=== PATIENT | male | born 1960 | race Caucasian/White ===

== ENCOUNTER 2020-05-18 01:10 | Emergency (ER) | payer BC, SELFPAY ==
--- NOTE | ~2020-05-18 | XR_ITS ---
EXAMINATION: CT abdomen pelvis wo con, XR abdomen/kub 1V DATE: 05/18/2020 01:58 INDICATION: Right flank pain TECHNIQUE: 1. Computed tomography (CT) of the abdomen and pelvis was performed without intravenous contrast. Aut omated exposure control and iterative reconstruction technique were employed. The dose-length product was 1383.85 mGy-cm. 2. AP view of the abdomen and pelvis was obtained on 2 radiographs. COMPARISON: None FINDINGS: CT: 7-8 mm right lower lobe pulmonary nodule. Heart size is normal. No pericardial or pleural effusion. G allstones at the neck of the normal-appearing gallbladder. Liver, spleen, pancreas and bilateral adre nal glands are normal. There is a 3 mm calcification along the course of the incompletely visualized distal right ureter near the region of the ureterovesicular junction however assessment at this locat ion is limited by dense metallic streak artifact from bilateral total hip arthroplasties which obscur es portions of the pelvis including the posterior bladder. Mild right hydroureteronephrosis with jimenez nephric and periureteral stranding. There are 3 additional nonobstructing stones at the lower pole of the left kidney measuring up to 3 mm. No left-sided ureteral stones or hydroureteronephrosis. Scatte red colonic diverticula without adjacent inflammatory change to suggest diverticulitis. No bowel obst ruction. The appendix is not visualized. No pericecal inflammatory change to suggest acute appendicit is. No free intraperitoneal gas or fluid. No pathologically enlarged abdominal or pelvic lymphadenopa thy. Moderate thoracolumbar spondylosis including 5 mm anterolisthesis L4 on L5 and 3 mm retrolisthes is L5 on S1. KUB: The 2 mm and 3 mm stones at the lower pole of the left kidney are visible on the plain radiographs. C audal to a linear atherosclerotic calcification in the right hemipelvis is a subtle density which may represent the suspected 2 mm distal right ureteral stone near the ureterovesicular junction. Normal bowel gas pattern. IMPRESSION: 1. Nephrolithiasis with likely obstructing 3 mm stone in the distal right ureter with mild right hydr oureteronephrosis and prominent perinephric and periureteral stranding. Evaluation in the region of t he distal ureter is however limited by streak artifact. The likely stone has been indicated on the pl ain radiographs. Correlate with urinalysis to exclude associated ascending urinary tract infection. 2. Indeterminate 7-8 mm right lower lobe nodule. Recommend 3 month follow-up low-dose noncontrast andres st CT. Reviewed, dictated and finalized at location A. IMPRESSION: 1. Nephrolithiasis with likely obstructing 3 mm stone in the distal right urete r with mild right hydroureteronephrosis and prominent perinephric and periurete ral stranding. Evaluation in the region of the distal ureter is however limited by streak artifact. The likely stone has been indicated on the plain radiograp hs. Correlate with urinalysis to exclude associated ascending urinary tract inf ection. 2. Indeterminate 7-8 mm right lower lobe nodule. Recommend 3 month follow-up lo w-dose noncontrast chest CT.
[2020-05-18 01:18] VITALS: BP 173/87; PULSE 77; RESP 18; TEMP 35.9; O2SAT 98
--- NOTE | 2020-05-18 01:31 | ED.BACK ---
HPI - Back Pain/Injury General Chief Complaint: Back Pain/Injury Stated Complaint: right flank pain Time Seen by Provider: 05/18/20 01:20 Source: RN notes reviewed History of Present Illness HPI Narrative: Patient presents emergency department from home for right flank pain. Patient states that approximately 30 tonight he sat on the couch watching TV when he developed right flank pain. He states the pain progressively getting worse and radiates around into the abdomen. Denies any fevers or chills vomiting or diarrhea. Notes intermittent nausea states he did take Advil at home 2 hours ago with minimal relief no history of kidney stones Related Data Home Medications Medication Instructions Recorded Confirmed atorvastatin 40 mg PO HS 05/18/20 glipizide 5 mg PO DAILY 05/18/20 losartan 100 mg PO HS 05/18/20 meloxicam 7.5 mg PO DAILY 05/18/20 metformin 500 mg PO BID 05/18/20 Allergies Allergy/AdvReac Type Severity Reaction Status Date / Time No Known Allergies Allergy Verified 05/18/20 01:12 Review of Systems Review of Systems: Narrative: Gen.: Denies fevers or chills ENT: Denies congestion Respiratory: Denies shortness of breath or cough CV: Denies chest pain or palpitations GI: Denies abdominal pain nausea, emesis or diarrhea reports right flank pain denies burning, urgency, frequency or hematuria Musculoskeletal: Denies back pain or muscle pain Neuro: Denies numbness, tingling, weakness or focal weakness Skin: Denies rash Except as documented, all other systems reviewed and negative PMFSH Past Medical History Medical History (Updated 05/18/20 @ 03:31 by Kunal Blank DO) Diabetes mellitus Social History Social History (Updated 05/18/20 @ 01:32 by Kunal Blank DO) Smoking status: Never smoker Exam Narrative: Exam Narrative: APPEARANCE: No acute distress, nontoxic, resting in bed EYES: EOMI HEENT: Normocephalic, atraumatic, OMM RESPIRATORY: No respiratory distress Clear to auscultation bilaterally with no rhonchi wheezing or rales. CARDIOVASCULAR: Regular rate and rhythm without murmurs rubs or gallops. ABDOMINAL: Soft, nontender, nondistended, no rebound or guarding right flank tenderness MUSCULOSKELETAl: Moves all extremities. No clubbing, cyanosis or edema. NEURO: Awake and alert. Following commands, speech normal, no focal deficits SKIN:: Warm, dry. No rashes lesions or abrasions PSYCHIATRIC: Normal affect/mood, Course Course Emergency Course: Patient states pain is improved at this time Discussed with patient results of workup and diagnosis. Discussed need for follow-up with primary care, proper use of medication, and reasons to return to the emergency department. Patient understands and agrees to current treatment plan. Discussed with patient CT findings of lung nodule and soft tissue density in the cecum need for follow-up with his primary care physician as an outpatient for further evaluation Vital Signs Vital signs: Vital Signs Temperature 96.6 F L 05/18/20 01:18 Pulse Rate 77 05/18/20 01:18 Respiratory Rate 18 05/18/20 01:18 Blood Pressure 173/87 H 05/18/20 01:18 Pulse Oximetry 98 05/18/20 01:18 Temperature 96.6 F L 05/18/20 01:18 Pulse Rate 77 05/18/20 01:18 Respiratory Rate 18 05/18/20 01:18 Blood Pressure 173/87 H 05/18/20 01:18 Pulse Oximetry 98 05/18/20 01:18 MDM - Back Pain/Injury Lab Data Result diagrams: 05/18/20 01:31 05/18/20 01:31 Labs: Lab Results 05/18/20 05/18/20 05/18/20 Range/Units 01:30 01:31 01:31 WBC 10.0 (4.5-10.0) K/mm3 RBC 4.62 (4.6-6.20) M/mm3 Hgb 14.2 (14.0-18.0) g/dL Hct 40.4 L (42.0-52.0) % MCV 87.4 (80-100) fl MCH 30.7 (26-34) pg MCHC 35.1 (32-36) g/dl RDW 11.8 (11.5-14.5) % Plt Count 195 (150-375) k/mm3 MPV 10.3 (7.4-10.4) fl Immature Gran % (Auto) 0.5 (0-0.5) % Neut % (Auto) 85.1 H (45.5-73.1) % Lymph
[2020-05-18 01:37] LABS: Basophils Percent Auto 0.4 % (0.2-1.2); Eosinophils Percent Auto 0.1 % (0-4.4); Hematocrit 40.4 % (42.0-52.0); Hemoglobin 14.2 g/dL (14.0-18.0); Immature Granulocyte Absolute 0.05 K/mm3 (0.00-0.031); Immature Granulocyte Percent A 0.5 % (0-0.5); Lymphocytes Absolute Auto 0.91 K/mm3 (0.9-3.2); Lymphocytes Percent Auto 9.1 % (18.3-44.2); Mean Corpuscular HGB Conc 35.1 g/dl (32-36); Mean Corpuscular Hemoglobin 30.7 pg (26-34); Mean Corpuscular Volume 87.4 fl (80-100); Mean Platelet Volume 10.3 fl (7.4-10.4); Monocytes Absolute Auto 0.5 K/mm3 (0.1-0.6); Monocytes Percent Auto 4.8 % (2.6-8.5); Neutrophils Absolute Auto 8.5 K/mm3 (1.3-6.7); Neutrophils Percent Auto 85.1 % (45.5-73.1); Platelet Count Result 195 k/mm3 (150-375); Red Blood Count 4.62 M/mm3 (4.6-6.20); Red Cell Distribution Width 11.8 % (11.5-14.5)
[2020-05-18 01:41] LABS: Add Urine Microscopic? YES; Appearance Urine Clear (Clear); Bilirubin Urine Negative (Negative); Blood Urine Negative (Negative); Color Urine Straw (Yellow); Glucose Urine UA 3+ mg/dL (Negative); Ketones Urine Trace mg/dL (Negative); Leukocyte Esterase Ur Negative LEU/UL (Negative); Mucus Urine Rare /lpf; Nitrate Urine Negative (Negative); Protein Urine Negative (Negative); RBC Urine 0-2 /hpf (0-2); Specific Grav Ur 1.022 (1.001-1.035); Urobilinogen Urine Negative mg/dL (<2.0)
[2020-05-18] MEDS: SODIUM CHLORIDE 0.9% IV 1,000 ML 999 ML IV CONT (01:44)
[2020-05-18 01:49] LABS: Alanine Aminotransferase 56 U/L (4-50); Albumin Level 4.2 g/dL (3.5-5.1); Alkaline Phosphatase 77 U/L (38-126); Anion Gap 9 mmol/L (8-16); Aspartate Amino Transferase 35 U/L (17-59); Blood Urea Nitrogen 25 mg/dL (9-20); Calcium 9.5 mg/dL (8.4-10.2); Carbon Dioxide 22 mmol/L (22-30); Chloride 99 mmol/L (98-107); Estimated CRCL calculation 81 ml/min; Estimated Glomerular Filt Rate > 60; Glucose 283 mg/dL (75-110); Potassium 4.5 mmol/L (3.4-5.0); Sodium 130 mmol/L (137-145)
[2020-05-18 01:50] LABS: Lipase 93 U/L (23-300)
[2020-05-18] MEDS: KETOROLAC 30 MG/ML VIAL (*BKC) IV PUSH (02:47)
[2020-05-18] MEDS: TAMSULOSIN HCL 0.4 MG CAPSULE PO (02:47)
[2020-05-18 03:48] VITALS: BP 154/89; PULSE 73; RESP 16; O2SAT 99
== END 2020-05-18 04:00 | disposition home or self-care (01) ==
PROVIDERS: Emergency Provider Emergency Medicine; PCP Internal Medicine
DX: N20.0 Calculus of kidney (principal); E11.9 Type 2 diabetes mellitus without complications
CPT/HCPCS: 36415; 74018; 74176; 80053; 81001; 83690; 85025; 96365; 96375; 99284; A9270; J0131; J1885; J7030

== ENCOUNTER 2025-01-11 14:08 | Emergency (ER) | payer MEDICARE, OTHER, SELFPAY ==
[2025-01-11 14:17] VITALS: BP 143/76; PULSE 74; RESP 16; TEMP 36.3; O2SAT 99
--- OUTSIDE RECORDS SUMMARY | 2025-01-11 14:19 | XMS_ITS | Clinical Summary ---
Author Organization [facility] Address [address] [place] [address] Care Team Providers Care Cyber Security Administrator Name Role Phone Solomon Benson MD Unavailable [phone] Joseph Carrillo MD Primary Care Provider [phone] Matthias AL MD, Joe Unavailable [phone] Source Comments [facility],non-owned Affiliates and Associated Physician Practices is amultiple site organization consisting of ambulatory clinics and hospital sitesin [place], [place], [place] and [place]. This disclosure is being madepursuant to the Care Everywhere program and may not contain all information available regarding this patient. Last updated 18.[employer] [facility] Allergies No known active allergies Medications * Be aware that medications may not be up to date on this document. Alwaysverify current medications with the patient. SIMVASTATIN PO Take by mouth. Active losartan - hydrochlorothiazide (HYZAAR) 50-12.5 MG tablet Take 1 Tab by mouth once daily. Active naproxen (NAPROSYN) 500 MG tablet Take 1 Tab by mouth 2 times daily. With food 60 Tab 3 01/19/20 13 Active traMADol (ULTRAM) 50 MG tablet Take 1 Tab by mouth every 6 hours as needed for Pain. 60 Tab 0 03/08/20 13 Active Acetaminophen (TYLENOL EXTRA STRENGTH PO) Take by mouth. Active traMADol (ULTRAM) 50 MG tablet Take 1 Tab by mouth every 6 hours as needed for Pain. 60 Tab 0 06/09/20 13 Active Active Problems Problem Noted Date Diagnosed Date Right hip pain 02/23/2013 Encounters Date Type Department Care Team Description 12/12/2024 Lab Requisition [facility] - DermPath Lab [address] [place] [address] Alyssa Saenz DO from Last 3 Months Social History Tobacco Use Types Packs/Day Years Used Date Smoking Tobacco: Never Alcohol Use Standard Drinks/Week Comments Not Asked 0 (1 standard drink = 0.6 oz pur e alcohol) Sex and Gender Information Value Date Recorded Sex Assigned at Not on file Legal Sex Male 1:55 PM GYN Gender Identity Not on file Sexual Orientation Not on file Last Filed Vital Signs Vital Sign Reading Time Taken Comments Blood Pressure 137/87 06/08/2013 2:32 PM CDT Pulse 90 06/08/2013 2:32 PM CDT Temperature - - Respiratory Rate 16 06/08/2013 2:32 PM CDT Oxygen Saturation 97% 06/08/2013 2:32 PM CDT Inhaled Oxygen Concentration - - Weight 90.7 kg (200 lb) 06/08/2013 1:47 PM CDT Height 175.3 cm (5' 9 ) 06/08/2013 1:47 PM CDT Body Mass Index 29.53 06/08/2013 1:47 PM CDT Plan of Treatment Health Maintenance Due Date Last Done Comments COLOGUARD (AGES 45-75) - COL ON CA SCREENING 1959 COLON MONITORING 1959 COLONOSCOPY - COLON CA SCREENING 1959 CT COLONOGRAPHY - COLON CA SCREENING 1959 Colorectal Cancer Screening 1959 FIT - COLON CA SCREENING 1959 FLEX SIG - COLON CA SCREENING 1959 MEDICARE AWV 12 MONTHS 1959 HIV SCREENING 12/04/1974 HEPATITIS C SCREENING 11/30/1977 DTAP/TDAP/TD VACCINES (1 - Tdap) 12/04/1978 PNEUMOCOCCAL VACCINE 50+ (1 of 1 - PCV) 12/04/2009 ZOSTER VACCINE (1 of 2) 12/04/2009 COVID-19 VACCINE ( - 2023-2 5 season) 2024 DEPRESSION SCREENING 09/07/2024 INFLUENZA VACCINE (Season Ended) 2025 Respiratory Syncytial Virus (RSV) Vaccine Pt: or over 60 yrs (1 - 1-dose 75+ series) 12/04/2034 HEPATITIS B VACCINE Aged Out No longe r eligible based on patient's age to complete this topic HIB VACCINE Aged Out No longer eligi ble based on patient's age to complete this topic HPV VACCINE Aged Out No longer eligi ble based on patient's age to complete this topic MENINGOCOCCAL (Group B) VACC INE SHARED DECISION-MAKING Aged Out No longer eligibl e based on patient's age to complete this topic MENINGOCOCCAL GROUPS A/C/Y/W VACCINE Aged Out No longer eligible b ased on patient's age to complete this topic Procedures Procedure Name Priority Date/Time Associated Diagnosis Comments DERMATOPATHOLOGY Routine 12/12/2024 10:5 1 AM CDT from Last 3 Months Results * DERMATOPATHOLOGY (12/12/2024 10:51 AM CDT) Case Report Dermatopathology Report Case: [id number] Authorizing Provider: Alyssa Saenz DO Collected: 12/12/2024 10:51 AM Ordering Location: [facility] - Received: 12/13/2024 07:38 AM DermPath Lab Pathologist: Rama Ritchie MD Specimen: Skin, left mid back 5:38 PM CDT DERMATOPATHOLOGY LABORATORY Final Diagnosis Specimen A. SKIN, left mid back: LENTIGINOUS MELANOCYTIC NEVUS, COMPOUND TYPE, IRRITATED (D22.5) 5:38 PM CDT DERMATOPATHOLOGY LABORATORY Clinical History Nevus, R/O Atypia 5:38 PM CDT DERMATOPATHOLOGY LABORATORY Gross Description Specimen A: Received is one formalin filled container labeled with the patient's name and designated left mid back. The specimen consists of a shave biopsy measuring 7x7x1 mm. Jar 0. 5:38 PM CDT DERMATOPATHOLOGY LABORATORY Microscopic Description Specimen A. SKIN, left mid back: This is a compound nevus. There is melanin pigment within the stratum corneum. There is a lentiginous proliferation of melanocytes between nests of cells along the dermal-epidermal junction, highlighted by MART-1/Melan-A immunohistochemical staining. PRAME demonstrates 1+ staining of the melanocytes. There is underlying fibroplasia of the papillary dermis. The intradermal component is bland appearance and matures with depth. Original and deeper sections were reviewed. (Compound Moiz's Nevus) 5 5:38 PM CDT DERMATOPATHOLOGY LABORATORY Disclaimer An external and internal positive and negative controls are appropriate for the histochemical, immunohistochemical and immunofluorescence stain(s) in this case (if any), except where stated explicitly. The performance characteristics of the stain(s) cited in this report were developed and its performance characteristic determined by the Dermatopathology Laboratory at [facility], directed by Dr. Faviola Alberto. These tests need not be, and therefore are not, approved by the [place] Food and Drug Administration. The tests are used for clinical purposes. Billing Codes Specimen Charges Stain Charges 58136 1 22339 26885 1 1 5 5:38 PM CDT DERMATOPATHOLOGY LABORATORY Embedded Images 5 5:38 PM CDT DERMATOPATHOLOGY LABORATORY Pathology/Cytolo gy TISSUE SPECIMEN FROM SKIN / Unknown 12/12/2024 10:51 AM CDT 12/13/2024 7:38 AM CDT us Alyssa Saenz DO LAB - PATHOLOGY/CYTOLOGY ORDERABLES Final Result DERMATOPATHOLOGY LABORATORY [facility] - Department of Dermatology [address], [address] [phone] from Last 3 Months Insurance [facility] [place] [address] Care Teams Cyber Security Administrator Relationship Specialty Start Date End Date Joseph Carrillo MD PCP - General Internal Medicine 03/31/12 Solomon Benson MD Orthopedic Surgery 03/31/12 Joe Rizzo IV, MD Orthopedic Surgery 04/29/12
--- OUTSIDE RECORDS SUMMARY | 2025-01-11 14:19 | XMS_ITS | Encounter Summary ---
Author Organization [facility] Address [address] [place] [address] Care Team Providers Care Stunner And Shackler Name Role Phone Solomon Benson MD Unavailable [phone] Joseph Carrillo MD Primary Care Provider [phone] Matthias AL MD, Joe Unavailable [phone] Encounter Details Date Type Department Care Team (Late st Contact Info) Description 12/12/2024 Lab Requisition [facility] - DermPath Lab [address] [address] [facility] [place] [id number] Alyssa Saenz DO [address] [facility] [address] [place] [address] Social History Tobacco Use Types Packs/Day Years Used Date Smoking Tobacco: Never Alcohol Use Standard Drinks/Week Comments Not Asked 0 (1 standard drink = 0.6 oz pur e alcohol) Sex and Gender Information Value Date Recorded Sex Assigned at Not on file Legal Sex Male 1:55 PM DIRECTOR ONLINE MARKETING Gender Identity Not on file Sexual Orientation Not on file documented as of this encounter Plan of Treatment Not on file documented as of this encounter Procedures Procedure Name Priority Date/Time Associated Diagnosis Comments DERMATOPATHOLOGY Routine 12/12/2024 10:5 1 AM CDT documented in this encounter Results * DERMATOPATHOLOGY (12/12/2024 10:51 AM CDT) Case Report Dermatopathology Report Case: [id number] Authorizing Provider: Alyssa Saenz DO Collected: 12/12/2024 10:51 AM Ordering Location: [facility] - Received: 12/13/2024 07:38 AM DermPath Lab Pathologist: Rama Ritchie MD Specimen: Skin, left mid back 5:38 PM T DERMATOPATHOLOGY LABORATORY Final Diagnosis Specimen A. SKIN, [...] deeper sections were reviewed. (Compound Moiz's Nevus) 5:38 PM T DERMATOPATHOLOGY LABORATORY Disclaimer An external and internal positive and negative controls are appropriate for the histochemical, immunohistochemical and immunofluorescence stain(s) in this case (if any), except where stated explicitly. The performance characteristics of the stain(s) cited in this report were developed and its performance characteristic determined by the Dermatopathology Laboratory at [facility], directed by Dr. Faviola Alberto. These tests need not be, and therefore are not, approved by the [place] Food and Drug Administration. The tests are used for clinical purposes. Billing Codes Specimen Charges Stain Charges 22188 1 47151 22062 1 1 5:38 PM CDT DERMATOPATHOLOGY LABORATORY Embedded Images 5:38 PM CDT DERMATOPATHOLOGY LABORATORY Pathology/Cytolo gy TISSUE SPECIMEN FROM SKIN / Unknown 12/12/2024 10:51 AM CDT 12/13/2024 7:38 AM CDT us Alyssa Sommerton DO LAB - PATHOLOGY/CYTOLOGY ORDERABLES Final Result DERMATOPATHOLOGY LABORATORY [facility] Department of Dermatology [facility] Medicine [address] [place] [address], [address] [phone] documented in this encounter Visit Diagnoses Not on filedocumented in this encounter Care Teams Stunner And Shackler Relationship Specialty Start Date End Date Joseph Carrillo MD PCP - General Internal Medicine 03/31/12 Solomon Benson MD Orthopedic Surgery 03/31/12 Joe Rizzo IV, MD Orthopedic Surgery 04/29/12 documented as of this encounter
--- OUTSIDE RECORDS SUMMARY | 2025-01-11 14:19 | XMS_ITS | Referral Summary ---
Author Organization [facility] Address [address] [place] [address] Care Team Providers Care [employer] Science Teacher Name Role Phone Valentine Hawkins MD Primary Care Provid er Allergies No known active allergies Medications atorvastatin (LIPITOR) 40 mg tablet Take 40 mg by mouth daily Active losartan (COZAAR) 100 mg tablet Take 100 mg by mouth daily with dinner Active meloxicam (MOBIC) 7.5 mg tablet Take 7.5 mg by mouth daily Active metFORMIN (GLUMETZA) 500 mg 24 hr tablet Take 500 mg by mouth 2 (two) times a day with meals Active glipiZIDE XL (GLUCOTROL XL) 5 mg 24 hr tabletIndication s:type 2 diabetes mellitus Take 5 mg by mouth 2 (two) times a day Active empagliflozin (JARDIANCE) 10 mg tabletIndication s:type 2 diabetes mellitus 10 mg daily Active hydroCHLOROthiaz mary (HYDRODIURIL) 12.5 mg tablet Take 12.5 mg by mouth daily 11/07/2021 Active Active Problems Problem Noted Date Diagnosed Date Hyperparathyroidism 04/10/2021 Assessment & Plan (04/10/2021 12:51 PM CDT): Primary hyperparathyroidism based on records reviewed. Will plan on confirming biochemical diagnosis with blood test today. Will obtain urine studies including stone analysis in 24 hour urine calcium from urology clinic. He had parathyroid scan with nonlocalizing imaging. Will obtain the images for review here. Will also obtain neck ultrasound. Bone density evaluation at baseline. Given recurrent kidney stones, patient meet criteria to have surgery. Will refer to surgery once we gather all the information necessary to make the diagnosis and justifies surgical treatment. Kidney stone 04/10/2021 Assessment & Plan (04/10/2021 12:48 PM CDT): Will request urology records including images and 24 hr urine studies Type 2 diabetes mellitus wit hout complication, without long-term current use of insulin 04/10/2021 Assessment & Plan (04/10/2021 12:49 PM CDT): Managed by PCP Plan A1c recheck in [address] Carrillo clinic. May consider increasing metformin to 1 g Social History Tobacco Use Types Packs/Day Years Used Date Smoking Tobacco: Never Smokeless Tobacco: Never AUDIT-C Answer Date Recorded Q1: How often do you have a drink containing alcohol? Never 02/05/2022 Q2: How many drinks containi ng alcohol do you have on a typical day when you are drinking? Patient does not drink Q3: How often do you have si x or more drinks on one occasion? Never 02/05/2022 Sex and Gender Information Value Date Recorded Sex Assigned at Not on file Legal Sex Male 1:23 PM ADVERTISING ANALYST Gender Identity Not on file Sexual Orientation Not on file Last Filed Vital Signs Vital Sign Reading Time Taken Comments Blood Pressure 106/66 02/11/2022 7:28 AM CDT Pulse 62 02/11/2022 7:28 AM CDT Temperature 36.8 C (98.2 F) 02/11/2022 7:28 AM CDT Respiratory Rate 18 02/11/2022 7:28 AM CDT Oxygen Saturation 97% 02/11/2022 7:28 AM CDT Inhaled Oxygen Concentration - - Weight 99.8 kg (220 lb) 02/10/2022 6:27 AM CDT Height 172.7 cm (5' 8 ) 02/10/2022 6:27 AM CDT Body Mass Index 33.45 02/10/2022 6:27 AM CDT Plan of Treatment Not on file Procedures Procedure Name Priority Date/Time Associated Diagnosis Comments EGFR Timed 02/11/2022 4:17 AM CDT PLASMA LIPID PANEL Routine 10/13/2012 8: 07 AM ADVERTISING ANALYST from Last 3 Months or Most Recently Relevant to Health Maintenance Results * eGFR (02/11/2022 4:17 AM CDT) eGFR 103 mL/min/1. 73 m2 DANIEL PEREIRA Comment: Interpretive Data Reference Interval Normal >/= 90 mL/min/1.73m2 Mildly decreased* 60 - 89 mL/min/1.73m2 Mildly to moderately decreased 45 - 59 mL/min/1.73m2 Moderately to severely decreased 30 - 44 mL/min/1.73m2 Severely decreased 15 - 29 mL/min/1.73m2 Kidney Failure < 15 mL/min/1.73m2 *Relative to young adult level Estimated glomerular filtration rate is determined by the 2020 CKD-EPI equation recommended by the National Kidney Foundation (A Unifying Approach to GFR Estimation: Recommendations of the NKF-ASK Task Force on Reassessing the Inclusion of Race in Diagnosing Kidney Disease, JASN 2020). The CKD-EPI equation should not be used for patients with unstable renal function and has not been validated in children and those over 70. Current interpretive data was last reviewed 2021. Blood 02/11/2022 4:17 AM CDT 02/11/2022 4:33 AM CDT us Lawson Wilder MD LAB BLOOD ORDERABLES [place] [facility] Result [facility]EL [address] [address] Department [place] [address] * (ABNORMAL) Plasma lipid panel (10/13/2012 8:07 AM ADVERTISING ANALYST) Cholesterol 210(H) 100 - 200 mg/dl HISTORICAL RESULTS Triglycerides 231(H) 10 - 150 mg/dl HISTORICAL RESULTS HDL 37(L) 40 - 59 mg/dl HISTORICAL RESULTS LDL 127 60 - 129 mg/dl HISTORICAL RESULTS Plasma 10/13/2012 8:07 AM ADVERTISING ANALYST Narrative HISTORICAL RESULTS - 10/13/2012 11:19 AM ADVERTISING ANALYST Test performed at [facility], [address] [place] [address], [id number]. Joseph Carrillo MD LAB BLOOD ORDERABLES Final Result HISTORICAL RESULTS from Last 3 Months or Most Recently Relevant to Health Maintenance Insurance [employer] [place] [employer] [place] Advance Directives For more information, please contact: [phone] * Full Code (Latest Code Status on File) Date Activated Date Inactivated Comments 02/10/2022 10:48 AM 02/11/2022 4:42 PM Care Teams [employer] Science Teacher Relationship Specialty Start Date End Date Valentine Hawkins MD [address] [facility] [address] [place] [address] PCP - General Internal Medicine 11/11/21
--- OUTSIDE RECORDS SUMMARY | 2025-01-11 14:19 | XMS_ITS | CONTINUITY OF CARE DOCUMENT ---
Author Name talon hanley Address Unknown Organization [facility] Office Address [address] [place] [address] Phone [phone] Care Team Providers Care Social Services Specialist Name Role Phone Rupal CHRISTIAN, Garcia Unavailable DAVID PACKER MD Unavailable [phone] PROBLEMS Condition Status Date Provider Notes Cardiovascular screening active Simona Encarnacion INSURANCE PROVIDERS Payer name Policy type / Coverage type Bethune red constitution party ID [facility] [id number] TREATMENT PLAN Date Name CT, Coronary Calcium Score HISTORY OF PROCEDURES Procedure Date Procedure Name Provider Procedure Notes S tatus CT- Coronary CA score Garcia Goldsmith MD completed
--- OUTSIDE RECORDS SUMMARY | 2025-01-11 14:19 | XMS_ITS | Clinical Summary ---
Author Organization [facility] Address [facility] [place] [address] Care Team Providers Care Compliance Associate Name Role Phone Valentine Hawkins MD Primary [...] May consider increasing metformin to 1 g Surgical History Surgery Date Site/Laterality Comments TOTAL HIP ARTHROPLASTY Bilateral COLONOSCOPY last 2020 Medical History Medical History Date Comments HTN (hypertension) DM (diabetes mellitus) (HCC) Hyperparathyroidism Type 2 diabetes mellitus (HCC) Motion sickness Family History Medical History Relation Name Comments Diabetes Father Kunal Prostate cancer Father Kunal Cancer Mother Saumya Relation Name Status Comments Father Kunal Mother Saumya Social History Tobacco Use Types Packs/Day Years [...] on file 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 Gender Identity Not on file Sexual Orientation Not on file Obstetrics History Last Filed Vital Signs Vital Sign Reading [...] 02/10/2022 6:27 AM CDT Plan of Treatment Health Maintenance Due Date Last Done Comments Albumin Creatinine Ratio, Urine 1959 Colon Cancer Screening-Colonoscopy 1959 Depression Screening 1959 Hemoglobin A1C 1959 Hepatitis C Screening 1959 Prostate Cancer Screening-PSA 1959 Dilated Eye Exam 1959 Foot Exam 1959 DTaP/Tdap/Td Vaccine (1 - Tdap) 12/04/1970 Hepatitis B Screening 12/04/1977 Pneumococcal vaccine 65+ (1 of 2 - PCV) 12/04/1978 Zoster Vaccine (1 of 2) 12/04/2009 Fall Risk Assessment 02/11/2023 02/11/2022 eGFR 02/11/2023 02/11/2022, 060 02/2022, 02/10/2022 Lipid Panel 03/04/2023 03/04/2022, 02/06, 10/13/2012 Covid-19 Vaccine (2023-2 5 season) 2024 07/02/2021, 01/04/2021, 12/10/2020, Additional history exists Abdominal Aortic Aneurysm (A AA) Screen 12/04/2024 Well Visit 65+ 12/04/2024 Influenza Vaccine (Season Ended) 2025 05/22/2021, 05/07/2020, 04/27/2020, Additional history exists Procedures Procedure Name Priority Date/Time Associated Diagnosis Comments EGFR Timed 02/11/2022 4:17 AM CDT PLASMA LIPID PANEL Routine 10/13/2012 8: 07 AM LICENSING SERVICES CLERK from Last 3 Months or Most Recently [...] 4:17 AM CDT 02/11/2022 4:33 AM CDT Lawson Wilder MD LAB BLOOD ORDERABLES [place] l Result [facility] [address] [place] [address] * (ABNORMAL) Plasma lipid panel (10/13/2012 8:07 AM LICENSING SERVICES CLERK) [facility] Cholesterol 210(H) 100 - 200 mg/dl HISTORICAL RESULTS Triglycerides 231(H) 10 - 150 mg/dl HISTORICAL RESULTS HDL 37(L) 40 - 59 mg/dl HISTORICAL RESULTS LDL 127 60 - 129 mg/dl HISTORICAL RESULTS Plasma 10/13/2012 8:07 AM LICENSING SERVICES CLERK Narrative HISTORICAL RESULTS - 10/13/2012 11:19 AM LICENSING SERVICES CLERK Test performed at [facility], [address] [place] [address], [facility]. Joseph Carrillo MD LAB BLOOD ORDERABLES Final Result HISTORICAL RESULTS from Last 3 Months or Most Recently Relevant to Health Maintenance Insurance [facility] [place] [employer] [place] Advance Directives For more information, please contact: [phone] * Full Code (Latest Code Status on File) Date Activated Date Inactivated Comments 02/10/2022 10:48 AM 02/11/2022 4:42 PM Care Teams Compliance Associate Relationship Specialty Start Date End Date Valentine Hawkins MD [address] [address] PCP - General Internal Medicine 11/11/21
--- OUTSIDE RECORDS SUMMARY | 2025-01-11 14:19 | XMS_ITS | Clinical Summary ---
Author Organization [facility] Address [address] [place] [address] Care Team Providers Care Trial Paralegal Name Role Phone Unavailable Primary Care Provider Unavailabl e Encounters Date Type Department Care Team Description 12/29/2024 9:00 AM CDT Ancillary Procedure [facility] [address] [place] [id number] Valentine Hawkins MD Other nonspecific abnormal finding of lung field 12/23/2024 Ancillary Procedure [facility] Business Office [address] [place] [address] Valentine Hawkins MD Other nonspecific abnormal finding of lung field from Last 3 Months Social History Tobacco Use Types Packs/Day Years Used Date Smoking Tobacco: Never Assessed Sex and Gender Information Value Date Recorded Sex Assigned at Not on file 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 Gender Identity Not on file Sexual Orientation Not on file Plan of Treatment Health Maintenance Due Date Last Done Comments DIABETES ANNUAL FOOT EXAM 12/04/1977 DIABETES ANNUAL RETINAL EXAM 12/04/1977 DIABETES HBA1C Q 6 MONTHS 12/04/1977 DIABETES MICROALBUMIN ANNUAL SCREEN 12/04/1977 LDL CHOLESTEROL ANNUAL 12/04/1977 DTAP/TDAP/TD VACCINES (1 - Tdap) 12/04/1978 PNEUMOCOCCAL VACCINE 50+ YEARS (1 of 2 - PCV) 12/04/18 78 COLORECTAL SCREENING 12/04/2004 Colorectal Cancer Screening 12/04/2004 FIT-DNA Q 3 years 12/04/2004 FIT/FOBT Q 1 year 12/04/2004 Flex Sig/CT Colonography Q 5 years 12/04/2004 ZOSTER VACCINE (1 of 2) 12/04/2009 INFLUENZA VACCINE (#1) 2024 RSV VACCINE (60+ or ) (1 - 1-dose 75+ series) 12/04/2034 Procedures Procedure Name Priority Date/Time Associated Diagnosis Comments CT CHEST WO CONTRAST Routine 12/29/2024 8:44 AM CDT Other nonspecific abnormal finding of lung field from Last 3 Months Results * CT CHEST WO CONTRAST (12/29/2024 8:44 AM CDT) Anatomical Region Laterality Modality Chest Computed Tomogra phy 12/29/2024 8:44 AM CDT Impressions 12/29/2024 12:27 PM CDT IMPRESSION: 1. Moderate enlargement of the right lower lung soft tissue nodule. No history of smoking, is not available in the chart. If patient is a nonsmoker or has there been a smoker, recommendation would be to repeat the scan in six months, if patient is a smoker or foraminal smoker, then the recommendation would be to obtain transthoracic nodule biopsy versus PET/CT scan, correlate clinically however, there is no mediastinal lymphadenopathy, bilateral adrenals are of normal appearance, there are no retrolisthesis within the liver, malignant pleural effusion and such, so correlate clinically. LUNG-RADS 3 2. DISH of the lower thoracic spine. 3. Left thyroid medial lesion which is actually superior to the left thyroid lobe may be secondary to parathyroid gland, abnormal lymph node versus metastatic disease, that case, but CT scan would be recommended more so than the biopsy. 4. Miscellaneous: Subcentimeter thyroid nodules for which workup is not indicated, mild calcification of the aorta and of the carotid arteries mild, borderline heart size, bilaterally normal adrenals, normal spleen and liver, cholelithiasis and normal size pancreas. Narrative 12/29/2024 12:27 PM CDT EXAM: CT CHEST WO CONTRAST DATE: 12/29/2024 HISTORY: Other nonspecific abnormal finding of lung field patient is a 64-year-old male with abnormal finding on the lung ortega are. Comparison is available and abnormal findings in the lung ortega are actually pulmonary nodules.. During the past chest radiograph, patient had a single patient had unchanged bilateral lung nodules except one nodule measuring 8.5 x 5.5 mm, remaining nodules are less than 4 mm. Patient is a 64 years old. COMPARISON: 11/26/2023, 10/23/2022, 04/14/2022, 09/04/2020 and 02/12/2017.. TECHNIQUE: Multislice axial. Radiation dose reduction technique was utilized. FINDINGS: The lung parenchyma appears clear without significant and emphysematous changes. Right lower lobe best seen on axial image #86 within the right lower lung lobe and it measures 9.8 x 6.7 mm. It is not attached to be any amenable bronchus for transbronchial biopsy. Within the remaining lungs, there are scattered nodules throughout the lung just below to 4 mm there unchanged. No new nodules are identified. There is no focal infiltrate, effusion or pneumothorax. Within the soft tissues of the chest, the left posterior supra thyroid nodule is again seen. Within the mediastinum, there is no significant lymphadenopathy, all of the mediastinal lymph nodes appear normal. There are calcifications versus stents within the coronary arteries. Heart size appears borderline enlarged. Within partially visualized upper abdomen, liver and spleen appear normal is not to metastatic disease and within the gallbladder, there is single large calculus which is positioned dependent, is nonobstructive. Bilateral adrenals are also of normal appearance so is the pancreas. On the sagittal imaging, there is a moderate to severe spondylosis from T11 through through T8 and with narrowing of the intervertebral disc spaces and large bridging osteophytes which are 4 so patient qualifies for diagnosis of DISH. The intra-abdominal aorta, there are minimal calcifications within the aortic arch and checked and neck arteries. Procedure Note Alka Lindsey MD - 12/29/2024 EXAM: CT CHEST WO CONTRAST DATE: 12/29/2024 HISTORY: Other nonspecific abnormal finding of lung field patient is a 64-year-old male with abnormal finding on the lung ortega are. Comparison is available and abnormal findings in the lung ortega are actually pulmonary nodules.. During the past chest radiograph, patient had a single patient had unchanged bilateral lung nodules except one nodule measuring 8.5 x 5.5 mm, remaining nodules are less than 4 mm. Patient is a 64 years old. COMPARISON: 11/26/2023, 10/23/2022, 04/14/2022, 09/04/2020 and 02/12/2017.. TECHNIQUE: Multislice axial. Radiation dose reduction technique was utilized. FINDINGS: The lung parenchyma appears clear without significant and emphysematous changes. Right lower lobe best seen on axial image #86 within the right lower lung lobe and it measures 9.8 x 6.7 mm. It is not attached to be any amenable bronchus for transbronchial biopsy. Within the remaining lungs, there are scattered nodules throughout the lung just below to 4 mm there unchanged. No new nodules are identified. There is no focal infiltrate, effusion or pneumothorax. Within the soft tissues of the chest, the left posterior supra thyroid nodule is again seen. Within the mediastinum, there is no significant lymphadenopathy, all of the mediastinal lymph nodes appear normal. There are calcifications versus stents within the coronary arteries. Heart size appears borderline enlarged. Within partially visualized upper abdomen, liver and spleen appear normal is not to metastatic disease and within the gallbladder, there is single large calculus which is positioned dependent, is nonobstructive. Bilateral adrenals are also of normal appearance so is the pancreas. On the sagittal imaging, there is a moderate to severe spondylosis from T11 through through T8 and with narrowing of the intervertebral disc spaces and large bridging osteophytes which are 4 so patient qualifies for diagnosis of DISH. The intra-abdominal aorta, there are minimal calcifications within the aortic arch and checked and neck arteries. IMPRESSION: 1. Moderate enlargement of the right lower lung soft tissue nodule. No history of smoking, is not available in the chart. If patient is a nonsmoker or has there been a smoker, recommendation would be to repeat the scan in six months, if patient is a smoker or foraminal smoker, then the recommendation would be to obtain transthoracic nodule biopsy versus PET/CT scan, correlate clinically however, there is no mediastinal lymphadenopathy, bilateral adrenals are of normal appearance, there are no retrolisthesis within the liver, malignant pleural effusion and such, so correlate clinically. LUNG-RADS 3 2. DISH of the lower thoracic spine. 3. Left thyroid medial lesion which is actually superior to the left thyroid lobe may be secondary to parathyroid gland, abnormal lymph node versus metastatic disease, that case, but CT scan would be recommended more so than the biopsy. 4. Miscellaneous: Subcentimeter thyroid nodules for which workup is not indicated, mild calcification of the aorta and of the carotid arteries mild, borderline heart size, bilaterally normal adrenals, normal spleen and liver, cholelithiasis and normal size pancreas. us Valentine Hawkins MD CT ORDERABLES Final Result from Last 3 Months Insurance MEDICARE PART A AND B [facility] [facility]
--- OUTSIDE RECORDS SUMMARY | 2025-01-11 14:26 | XMS_ITS | CONTINUITY OF CARE DOCUMENT ---
Author Name talon hanley Address Unknown Organization [facility] Office Address [address] [address] [place] [address] Phone [phone] Care Team Providers Care Manager Risk Name Role Phone Rupal CHRISTIAN, Garcia Unavailable DAVID PACKER MD Unavailable [phone] PROBLEMS Condition Status Date Provider Notes Cardiovascular screening active Simona Encarnacion INSURANCE PROVIDERS Payer name Policy type / Coverage type [place] [employer] [facility] [id number] TREATMENT PLAN Date Name CT, Coronary Calcium Score HISTORY OF PROCEDURES Procedure Date Procedure Name Provider Procedure Notes S tatus CT- Coronary CA score Garcia Goldsmith MD completed
--- NOTE | 2025-01-11 15:05 | ED_ITS ---
HPI - URI/Sore Throat General Chief Complaint: Upper Respiratory Infection Stated Complaint: cough/head congestion Time Seen by Provider: 01/11/25 14:35 Source: patient and RN notes reviewed Mode of arrival: ambulatory Limitations: no limitations History of Present Illness HPI Narrative: 64-year-old male presents Express Care complaining of upper respiratory symptoms for 2 weeks. Patient said he had similar symptoms as his spouse stated. Patient reports that he continue has congestion, sinus pressure, headaches, dry and sometimes productive cough. Patient reports having yellow nasal discharge sometimes coughing up yellow sputum. Patient says the cough is worse at night. Patient states he feels warm at times but denies any fevers, chills, body aches, chest pain, or shortness of breath. He has a history of diabetes. Related Data Home Medications ?Medication ?Instructions ?Recorded ?Confirmed ?Last Taken ?Type losartan 100 mg tablet 100 mg PO HS 05/18/20 01/11/25 05/17/20 History meloxicam 7.5 mg tablet 7.5 mg PO DAILY 05/18/20 01/11/25 05/17/20 History atorvastatin 80 mg tablet mg 01/11/25 Unknown History glipizide 10 mg tablet mg 01/11/25 Unknown History metformin 1,000 mg tablet mg 01/11/25 Unknown History Allergies Allergy/AdvReac Type Severity Reaction Status Date / Time No Known Allergies Allergy Verified 01/11/25 14:33 Review of Systems Review of Systems: CONSTITUTIONAL: Denies fever, chills, or sweats. EYES: Denies visual changes, redness, or discharge. ENT: Denies rhinorrhea, congestion, sore throat, or otalgia. CARDIOVASCULAR: Denies chest pain, palpitations, or edema. RESPIRATORY: Positive for cough, negative for dyspnea. GASTROINTESTINAL: Denies abdominal pain, nausea, vomiting, or diarrhea. GENITOURINARY: Denies dysuria or hematuria. SKIN: Denies rash or itching. MUSCULOSKELETAL: Denies back pain, joint pain, or myalgia. NEUROLOGIC: Denies headache, numbness, or weakness. PSYCHIATRIC: Denies anxiety or depression. All other systems reviewed are negative, except as documented in HPI. [facility] Past Medical History Medical History Diabetes mellitus Social History Social History Smoking status: Never smoker Comments At the time of my signature, I reviewed and agree with the nursing past medical, surgical, social, and family history. There is no relevant family history pertinent to the patient complaint. Exam Narrative: GENERAL: This is a well-nourished, well-developed adult, in no apparent distress. They are non ill-appearing, nontoxic appearing. HEAD: normocephalic, atraumatic. EYES: Sclera clear/white. Conjunctiva normal. Vision is grossly intact. Extraocular movements intact EARS: External ears normal, auditory canals clear and without drainage, TMs normal without perforation. Hearing grossly intact. NOSE: External nose normal with no obvious nasal discharge, nasal turbinates erythematous bilaterally, no rhinorrhea. THROAT: Mucous membranes moist, posterior pharynx delete that up without erythema or swelling. Postnasal drip present Uvula midline. NECK: Neck supple, non-tender without lymphadenopathy, masses or thyromegaly. CARDIOVASCULAR: Regular rate and rhythm without murmurs, gallops, or rubs. RESPIRATORY: Clear to auscultation. Breath sounds equal bilaterally. No wheezes, rales, or rhonchi. SKIN: warm, Dry, intact with no suspicious lesions or rash, good texture and turgor. NEURO: awake, alert, and oriented to person, place and time. There were no obvious focal neurologic abnormalities. EXTREMITIES: No joint tenderness, effusion, or edema noted. BACK: Nontender without deformity. No CVA tenderness. Course Course Emergency Course: Portions of this record may have been created with voice recognition software Level of Care: Express Care Visit Vital Signs Vital signs: Vital Signs Temperature 97.4 F L 01/11/25 14:17 Pulse Rate 74 01/11/25 14:17 Respiratory Rate 16 01/11/25 14:17 Blood Pressure 143/76 H 01/11/25 14:17 Pulse Oximetry 99 01/11/25 14:17 Oxygen Delivery Room Air 01/11/25 14:17 Temperature 97.4 F L 01/11/25 14:17 Pulse Rate 74 01/11/25 14:17 Respiratory Rate 16 01/11/25 14:17 Blood Pressure 143/76 H 01/11/25 14:17 Pulse Oximetry 99 01/11/25 14:17 Oxygen Delivery Room Air 01/11/25 14:17 Reviewed MDM - URI/Sore Throat MDM Narrative Medical decision making narrative: Given patient's length of symptoms is likely the patient has developed a bacterial sinusitis. Will treat empirically with Augmentin. Will prescribe patient benzonatate as needed for cough. Discussed physical exam findings. Advised supportive measures and signs/symptoms to go to the ER. Pt is appropriate for outpt treatment and f/u. Differential Diagnosis Differential diagnosis: Likely upper respiratory infection, sinusitis and bronchitis Critical Care Time Critical Care Time Critical Care Time: No Discharge Plan Discharge Clinical Impression: Sinusitis Qualifiers: Sinusitis location: unspecified location Chronicity: acute Recurrence: non- recurrent Qualified Code(s): J01.90 - Acute sinusitis, unspecified Patient Disposition: Home Condition: Stable Instructions: Antibiotic Form, Sinusitis (ED) Additional Instructions: Take the antibiotics as directed and complete the course even if you start to feel better. You may use a Neti pot saline rinse 3 times a day Luke warm distilled water. Continue to take Tylenol or Motrin for pain. Use a humidifier or vaporizer at night. Drink plenty of water. 8-10 glasses per day. Use flonase 2 times per day for 5 days then as needed Take mucinex 2 times per day and be sure to take with 8oz of water. Take benzonatate as needed for cough. Follow up with Primary provider if not getting better. She developed breathing problems, fevers, wheezing, chest pain or any other concerns please go to the ER immediately. Patient Language: Yoruba Prescriptions: New benzonatate 100 mg capsule 100 mg PO TID PRN (Reason: cough) Qty: 20 0RF amoxicillin-pot clavulanate 875-125 mg tablet 1 tablet PO Q12H 7 Days Qty: 14 0RF No Action atorvastatin 80 mg tablet glipizide 10 mg tablet metformin 1,000 mg tablet meloxicam 7.5 mg Tablet 7.5 mg PO DAILY losartan 100 mg Tablet 100 mg PO HS Follow-up/Referrals: UNKNOWN,DOCTOR [Primary Care Provider] - Time of Disposition: 14:47
== END 2025-01-11 14:53 | disposition home or self-care (01) ==
DX: J01.90 Acute sinusitis, unspecified (principal); E11.9 Type 2 diabetes mellitus without complications
CPT/HCPCS: 99213; G0463